=== PATIENT | female | born 1955 | race African-American/Black ===

== ENCOUNTER 2019-07-20 23:49 | Emergency (ER) | payer OTHER ==
[2019-07-21 00:27] VITALS: TEMP 98.8; BMI 37.2
--- NOTE | 2019-07-21 01:42 | PDOC ---
History of Present Illness - General Chief Complaint: Asthma Stated Complaint: Asthma - History of Present Illness Initial Comments: The pt is a 63F w/ a history of asthma who presents for evaluation of 2 days of worsening SOB, wheeze, and 1 day of coughing. She has tried taking her home inhaler/nebulizer w/ minimal relief. She denies fevers/chills, chest pain, N/V/C /D, abdominal pain, dizziness, changes in vision, or changes in sensation. She denies being hospitalized or intubated for her asthma in the past. 07/21/19 02:06 Past History - Past Medical History Allergies/Adverse Reactions: Allergies Allergy/AdvReac Type Severity Reaction Status Date / Time No Known Allergies Allergy Verified 07/21/19 00:21 Home Medications: Ambulatory Orders Albuterol Sulfate Inhaler - [Ventolin HFA Inhaler -] 1 puff IN PRN MDD sob 07/21 predniSONE [Deltasone -] 40 mg PO DAILY #8 tablet 07/21/19 - Psycho Social/Smoking Cessation Hx Smoking History: Never smoked Hx Alcohol Use: No Drug/Substance Use Hx: No Review of Systems - Review of Systems Able to Perform ROS?: Yes Comments:: GENERAL/CONSTITUTIONAL: No fever or chills. No weakness HEAD, EYES, EARS, NOSE AND THROAT: No change in vision. No change in hearing. No sore throat CARDIOVASCULAR: No chest pain RESPIRATORY: +cough, wheeze GASTROINTESTINAL: No nausea, vomiting, diarrhea or constipation GENITOURINARY: No dysuria, frequency, or change in urination MUSCULOSKELETAL: No joint or muscle swelling or pain. No neck or back pain SKIN: No rash NEUROLOGIC: No headache, vertigo, loss of consciousness, or change in strength/ sensation ENDOCRINE: No increased thirst. No abnormal weight change HEMATOLOGIC/LYMPHATIC: No anemia, or history of blood clots ALLERGIC/IMMUNOLOGIC: No hives or skin allergy 07/21/19 01:41 Is the patient limited Malay proficient: No *Physical Exam - Vital Signs Last Vital Signs Temp Pulse Resp BP Pulse Ox 98.8 F 92 H 22 H 138/53 L 97 07/20/19 23:50 07/20/19 23:50 07/20/19 23:50 07/20/19 23:50 07/20/19 23:50 - Physical Exam Comments: GENERAL: Awake, alert, and oriented to person/place/time, in no acute distress HEAD: No signs of trauma, normocephalic, atraumatic EYES: PERRLA, EOMI, sclera anicteric, conjunctiva clear ENT: Hearing grossly normal, nares patent, oropharynx clear without exudates. Moist mucosa LUNGS: No distress, b/l diffuse inspiratory and expiratory wheezes HEART: Regular rate and rhythm, normal S1 and S2, no murmurs appreciated, peripheral pulses normal and equal bilaterally ABDOMEN: Soft, nontender, normoactive bowel sounds. No guarding, no rebound. No masses EXTREMITIES: Normal inspection, Normal range of motion, no edema. No clubbing or cyanosis NEUROLOGICAL: Cranial nerves II through XII grossly intact. Normal speech, no focal sensorimotor deficits SKIN: Warm, Dry 07/21/19 01:42 ED Treatment Course - LABORATORY CBC & Chemistry Diagram: 07/21/19 02:00 07/21/19 02:00 Medical Decision Making - Medical Decision Making The pt is a 63F w/ a history of asthma who presents for evaluation of 2 days of worsening SOB, wheeze, and 1 day of coughing. ED Course Labs sent ECG Duo-neb x3, Solumedrol 125mg IV once, and Mg 1g IV once for symptomatic relief 07/21/19 02:08 No leukocytosis No anemia Lytes unremarkable No ARIANA Trop I neg BNP wnl Pt w/ persistent wheezing s/p 5 duo-nebs, steroids, and Mg CXR w/ perihilar LAD, mediastinal widening -CTA chest PT tachy to 120s, BP stable Plan for admission for asthma exacerbation Pt does not want to stay and wishes to AMA [facility] Admitting resident, Dr. Skelton has pt sign AMA form and informed pt of risks of leaving Dispo: AMA 07/21/19 04:06 Discharge - Discharge Information Problems reviewed: Yes Clinical Impression/Diagnosis: Asthma exacerbation Qualifiers: Asthma severity: moderate Asthma persistence: unspecified Qualified Code(s): J45.901 - Unspecified asthma with (acute) exacerbation Condition: Fair Disposition: AGAINST MEDICAL ADVICE - Admission No - Additional Discharge Information Prescriptions: predniSONE [Deltasone -] 40 mg PO DAILY #8 tablet - Follow up/Referral Referrals: Azar Case MD [Staff Physician] - Baudilio Love MD [Staff Physician] - Barrera Costello MD, MD [Staff Physician] - - Patient Discharge Instructions Patient Printed Discharge Instructions: DI for Asthma -- Adult Additional Instructions: You were seen in the Emergency Department for evaluation of an asthma exacerbation. A prescription for steroids was sent to your pharmacy. Take daily for the next 4 days. Review the handout provided at discharge. Follow up with your primary care provider this week. Return to the Emergency Department if you develop worsening symptoms, trouble breathing, lightheadeness/dizziness, chest pain, vision changes, fevers/chills, or any new/concerning symptoms. - Post Discharge Activity
[2019-07-21] MEDS ORDERED: ALBUTEROL SO4 2.5/IPRATROPIUM 0.5 INH SOL 3 ML VIAL.NEB. NEB ONE ×2 (01:48→03:06)
--- NOTE | 2019-07-21 01:53 | PDOC ---
Attending Attestation - Resident Resident Name: CastilloFranko varela - ED Attending Attestation I have performed the following: I have examined & evaluated the patient, The case was reviewed & discussed with the resident, I agree w/resident's findings & plan - HPI HPI: 07/21/19 02:06 see resident hpi - Physicial Exam PE: 07/21/19 02:07 agree with resident exam - Medical Decision Making 07/21/19 02:07 63 yo female with acute asthma exacerbation will r/o cardiac asthma solumedrol, magnesium, beta agonists hopeful d/c home at pt request
[2019-07-21] MEDS ORDERED: methylPREDNISolone NA SUCC 125 MG/2 ML VIAL IVPB ONE (01:54)
[2019-07-21] MEDS: ALBUTEROL SO4 2.5/IPRATROPIUM 0.5 INH SOL 3 ML VIAL.NEB. NEB SCH ×5 (02:00→03:17)
[2019-07-21] MEDS ORDERED: MAGNESIUM SULF 50% (8.12 MEQ/2 ML-1 GM VIAL) IVPB ONE (02:01)
[2019-07-21] MEDS ORDERED: methylPREDNISolone NA SUCC 125 MG/2 ML VIAL ONE (02:11)
[2019-07-21] MEDS ORDERED: MAGNESIUM 1GM/D5W - 1 GM/100 ML IVPB IVPB ONE (02:11)
[2019-07-21 02:19] LABS: BASO % 1.3 % (0-2.0); EOS % 8.4 % (0-4.5); HEMATOCRIT 38.8 % (32.4-45.2); HEMOGLOBIN 13.1 GM/dL (10.7-15.3); LYMPH % 26.6 % (8-40); MCH 29.2 pg (25.7-33.7); MCHC 33.7 g/dl (32.0-36.0); MEAN CELL VOLUME 86.5 fl (80-96); MEAN PLT VOLUME 8.3 fl (7.5-11.1); MONO % 6.4 % (3.8-10.2); NEUT % 57.3 % (42.8-82.8); PLATELET COUNT 273 K/MM3 (134-434); RBC 4.49 M/mm3 (3.60-5.2); RDW 14.4 % (11.6-15.6); WHITE BLOOD COUNT 7.6 K/mm3 (4.0-10.0)
[2019-07-21 02:39] LABS: ALBUMIN 3.8 g/dl (3.4-5.0); ALK PHOS 100 U/L (45-117); ANION GAP 8 MMOL/L (8-16); BILIRUBIN,TOTAL 0.3 mg/dL (0.2-1); BLOOD UREA NITROGEN 9.4 mg/dL (7-18); CALCIUM 8.9 mg/dL (8.5-10.1); CHLORIDE 108 mmol/L (98-107); CO2 25 mmol/L (21-32); GLUCOSE,RANDOM 105 mg/dL (74-106); N-TERMINAL BNP 12.8 pg/ml (5-125); POTASSIUM 3.8 mmol/L (3.5-5.1); SGOT/AST 14 U/L (15-37); SGPT/ALT 19 U/L (13-61); SODIUM 140 mmol/L (136-145); TOT PROT 7.3 g/dl (6.4-8.2)
[2019-07-21 04:08] VITALS: BP 136/74
--- NOTE | 2019-07-21 04:51 | HP ---
CHIEF COMPLAINT: PCP: HISTORY OF PRESENT ILLNESS: ER course was notable for: (1) (2) (3) Recent Travel: PAST MEDICAL HISTORY: PAST SURGICAL HISTORY: Social History: Smoking: Alcohol: Drugs: Allergies No Known Allergies Allergy (Verified 07/21/19 00:21) HOME MEDICATIONS: REVIEW OF SYSTEMS CONSTITUTIONAL: Absent: fever, chills, diaphoresis, generalized weakness, malaise, loss of appetite, weight change HEENT: Absent: rhinorrhea, nasal congestion, throat pain, throat swelling, difficulty swallowing, mouth swelling, ear pain, eye pain, visual changes CARDIOVASCULAR: Absent: chest pain, syncope, palpitations, irregular heart rate, lightheadedness , peripheral edema RESPIRATORY: Absent: cough, shortness of breath, dyspnea with exertion, orthopnea, wheezing, stridor, hemoptysis GASTROINTESTINAL: Absent: abdominal pain, abdominal distension, nausea, vomiting, diarrhea, constipation, melena, hematochezia GENITOURINARY: Absent: dysuria, frequency, urgency, hesitancy, hematuria, flank pain, genital pain MUSCULOSKELETAL: Absent: myalgia, arthralgia, joint swelling, back pain, neck pain SKIN: Absent: rash, itching, pallor HEMATOLOGIC/IMMUNOLOGIC: Absent: easy bleeding, easy bruising, lymphadenopathy, frequent infections ENDOCRINE: Absent: unexplained weight gain, unexplained weight loss, heat intolerance, cold intolerance NEUROLOGIC: Absent: headache, focal weakness or paresthesias, dizziness, unsteady gait, seizure, mental status changes, bladder or bowel incontinence PSYCHIATRIC: Absent: anxiety, depression, suicidal or homicidal ideation, hallucinations. PHYSICAL EXAMINATION Vital Signs - 24 hr 07/20/19 07/21/19 23:50 04:07 Temperature 98.8 F Pulse Rate 92 H Pulse Rate [ 120 H Right Radial] Respiratory 22 H 22 H Rate Blood Pressure 138/53 L Blood Pressure 136/74 [Right Arm] O2 Sat by Pulse 97 99 Oximetry (%) GENERAL: Awake, alert, and fully oriented, in no acute distress. HEAD: Normal with no signs of trauma. EYES: Pupils equal, round and reactive to light, extraocular movements intact, sclera anicteric, conjunctiva clear. No lid lag. EARS, NOSE, THROAT: Ears normal, nares patent, oropharynx clear without exudates. Moist mucous membranes. NECK: Normal range of motion, supple without lymphadenopathy, JVD, or masses. LUNGS: Breath sounds equal, clear to auscultation bilaterally. No wheezes, and no crackles. No accessory muscle use. HEART: Regular rate and rhythm, normal S1 and S2 without murmur, rub or gallop. ABDOMEN: Soft, nontender, not distended, normoactive bowel sounds, no guarding, no rebound, no masses. No hepatomegaly or splenomegaly. MUSCULOSKELETAL: Normal range of motion at all joints. No bony deformities or tenderness. No CVA tenderness. UPPER EXTREMITIES: 2+ pulses, warm, well-perfused. No cyanosis. No clubbing. No peripheral edema. LOWER EXTREMITIES: 2+ pulses, warm, well-perfused. No calf tenderness. No peripheral edema. NEUROLOGICAL: Cranial nerves II-XII intact. Normal speech. Normal gait. PSYCHIATRIC: Cooperative. Good eye contact. Appropriate mood and affect. SKIN: Warm, dry, normal turgor, no rashes or lesions noted, normal capillary refill. Laboratory Results - last 24 hr 07/21/19 07/21/19 02:00 02:00 WBC 7.6 RBC 4.49 Hgb 13.1 Hct 38.8 MCV 86.5 MCH 29.2 MCHC 33.7 RDW 14.4 Plt Count 273 MPV 8.3 Absolute Neuts (auto) 4.3 Neutrophils % 57.3 Lymphocytes % 26.6 Monocytes % 6.4 Eosinophils % 8.4 H Basophils % 1.3 Nucleated RBC % 0 Sodium 140 Potassium 3.8 Chloride 108 H Carbon Dioxide 25 Anion Gap 8 BUN 9.4 Creatinine 1.0 Est GFR (CKD-EPI)AfAm 69.44 Est GFR (CKD-EPI)NonAf 59.91 Random Glucose 105 Calcium 8.9 Total Bilirubin 0.3 AST 14 L ALT 19 Alkaline Phosphatase 100 Troponin I < 0.02 B-Natriuretic Peptide 12.8 Total Protein 7.3 Albumin 3.8 ASSESSMENT/PLAN: Visit type - Emergency Visit Emergency Visit: Yes Care time: The patient presented to the Emergency Department on the above date and was hospitalized for further evaluation of their emergent condition. - New Patient This patient is new to me today: Yes Date on this admission: 07/21/19 - Critical Care Critical Care patient: No ATTENDING PHYSICIAN STATEMENT I saw and evaluated the patient. I reviewed the resident's note and discussed the case with the resident. I agree with the resident's findings and plan as documented. SUBJECTIVE: OBJECTIVE: ASSESSMENT AND PLAN:
[2019-07-21 05:20] VITALS: PULSE 114
--- NOTE | 2019-07-21 12:05 | EKG ---
Test Reason : Blood Pressure : / mmHG Vent. Rate : 093 BPM Atrial Rate : 093 BPM P-R Int : 140 ms QRS Dur : 078 ms QT Int : 378 ms P-R-T Axes : 059 049 037 degrees QTc Int : 469 ms NORMAL SINUS RHYTHM NORMAL ECG NO PREVIOUS ECGS AVAILABLE Confirmed by Juan Duarte ([id number]) on 07/21/2019 12:05:06 PM Referred By: Confirmed By:Juan Duarte
== END 2019-07-21 05:19 | disposition left against medical advice (07) ==
LOC: JER 23:49 → JERBED 07-21 04:25 → UNDOADMIN 07-21 04:25
PROC: 3E0F7GC Introduction of Other Therapeutic Substance into Respiratory Tract, Via Natural or Artificial Opening (ICD-10-PCS; principal; 2019-07-21)
PROC: 3E0F7GC Introduction of Other Therapeutic Substance into Respiratory Tract, Via Natural or Artificial Opening (ICD-10-PCS; 2019-07-21)
PROC: 3E033GC Introduction of Other Therapeutic Substance into Peripheral Vein, Percutaneous Approach (ICD-10-PCS; 2019-07-21)
PROC: 3E0333Z Introduction of Anti-inflammatory into Peripheral Vein, Percutaneous Approach (ICD-10-PCS; 2019-07-21)
DX: J45.901 Unspecified asthma with (acute) exacerbation (principal)
CPT/HCPCS: 36415; 71045-TC-FY; 80053; 83880; 84484; 85025; 93005; 93010; 99283-25